=== PATIENT | female | born 1985 | race Caucasian/White ===

== ENCOUNTER 2024-10-27 12:10 | Emergency (ER) | payer BC, MEDICAID ==
[2024-10-27 12:26] VITALS: BP 143/90; PULSE 78
[2024-10-27] MEDS: Sodium Chloride 0.9% 1,000 ML IV ONE (15:25)
[2024-10-27] MEDS: Ketorolac 15 MG/ML SDV IVPUSH ONE (15:26)
[2024-10-27] MEDS: Prochlorperazine 10 MG/2 ML SDV IVPUSH ONE (15:26)
[2024-10-27] MEDS: diphenhydrAMINE 50 MG/ML SDV IVPUSH ONE (15:29)
== END 2024-10-27 16:58 | disposition home or self-care (01) ==
LOC: JP.ED 12:10
DX: G43.909 Migraine, unspecified, not intractable, without status migrainosus (principal); J45.909 Unspecified asthma, uncomplicated; Z88.2 Allergy status to sulfonamides; Z88.8 Allergy status to other drugs, medicaments and biological substances
CPT/HCPCS: 96361; 96374; 96375; 99283; J0780; J1200; J1885; J7030